=== PATIENT | female | born 1960 | race Caucasian/White ===

== ENCOUNTER 2016-08-13 20:04 | Emergency (ER) | payer OTHER ==
--- NOTE | 2016-08-14 00:24 | DIAGNOSTIC IMAGING REPORT ---
PROCEDURE: XR CHEST 2 VIEW INDICATION: SHORTNESS OF BREATH, initial encounter TECHNIQUE: PA and lateral view. COMPARISON: None. FINDINGS: Lungs are clear. Borderline cardiomegaly. Mediastinum and pulmonary vessels are normal. Bony thorax is unremarkable. IMPRESSION: 1. Borderline cardiomegaly.
--- NOTE | 2016-08-14 00:46 | ED ORDER SUMMARY ---
..... Patient: SASKIA COURTNEY OrderSheet [facility] VisitID: [id number] [place] [address] 55y, F Registration Date/Time: 08/13/2016 ORDER SHEET Weight: 72.5 kg (stated) Allergies: Codeine, Iodine GENERAL ORDERS: Chest 2V Urgent (21:34 08/13/2016 Linda TUTTLE) (Ack 21:37 ALawrence ER Tech1) (22:29 MCampbell) Vascular Sonographer (Continuous) (21:35 08/13/2016 Linda TUTTLE) (21:36 Wero R.N.) Cardiac Panel Stat (21:35 08/13/2016 Linda TUTTLE) (Ack 21:37 ALawrence ER Tech1) (21:55 ARIELLEullaminata R.N.) EKG - ER Stat (21:35 08/13/2016 Linda TUTTLE) (Ack 21:37 ALawrence ER Tech1) (22:04 ALawrence ER Tech1) Pulse oximeter (21:35 08/13/2016 Linda TUTTLE) (21:36 Wero R.N.) BNP Urgent (22:47 08/13/2016 Linda TUTTLE) (22:53 ALawrence ER Tech1) MEDICATION ORDERS: Albuterol Neb Tx 2.5 mg (NOW, HHN) (22:51 08/13/2016 Linda TUTTLE) (23:31 Wero R.N.) Hydrocodone-APAP PO 10/650 mg (NOW) (23:46 08/13/2016 Linda TUTTLE) (0:12 Wero R.N.) IV FLUIDS: IV NS : initial bolus 500 mL (1000 mL/hr), then 250 mL/hr for 2h (NOW); Routine (21:35 08/13/2016 Linda TUTTLE) (21:56 Wero R.N.) Rocephin IV 2 gm/50mL (NOW) (23:46 08/13/2016 Linda TUTTLE) (0:12 Wero R.N.) ORDER SHEET NOTES: [Electronically signed by Timoteo Ivan R.N. (01:08/14/2016)] [Electronically signed by Bud Munoz MD (20:57 08/14/2016)] [Electronically locked/signed by Timoteo Ivan R.N. (:08/14/2016)]
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
--- NOTE | 2016-08-14 00:46 | ED ORDER SUMMARY ---
..... Patient: SASKIA COURTNEY OrderSheet [facility] VisitID: [id number] [place] [address] 55y, F Registration Date/Time: 08/13/2016 ORDER SHEET Weight: 72.5 kg (stated) Allergies: Codeine, Iodine GENERAL ORDERS: Chest 2V Urgent (21:34 08/13/2016 Linda TUTTLE) (Ack 21:37 ALawrence ER Tech1) (22:29 MCampbell) Horseradish Maker (Continuous) (21:35 08/13/2016 Linda TUTTLE) (21:36 Wero R.N.) Cardiac Panel Stat (21:35 08/13/2016 Linda TUTTLE) (Ack 21:37 ALawrence ER Tech1) (21:55 ARIELLEullaminata R.N.) EKG - ER Stat (21:35 08/13/2016 Linda TUTTLE) (Ack 21:37 ALawrence ER Tech1) (22:04 ALawrence ER Tech1) Pulse oximeter (21:35 08/13/2016 Linda TUTTLE) (21:36 Wero R.N.) BNP Urgent (22:47 08/13/2016 Linda TUTTLE) (22:53 ALawrence ER Tech1) MEDICATION ORDERS: Albuterol Neb Tx 2.5 mg (NOW, HHN) (22:51 08/13/2016 Linda TUTTLE) (23:31 Wero R.N.) Hydrocodone-APAP PO 10/650 mg (NOW) (23:46 08/13/2016 Linda TUTTLE) (0:12 Wero R.N.) IV FLUIDS: IV NS : initial bolus 500 mL (1000 mL/hr), then 250 mL/hr for 2h (NOW); Routine (21:35 08/13/2016 Linda TUTTLE) (21:56 Wero R.N.) Rocephin IV 2 gm/50mL (NOW) (23:46 08/13/2016 Linda TUTTLE) (0:12 Wero R.N.) ORDER SHEET NOTES: [Electronically signed by Timoteo Ivan R.N. (01:08/14/2016)] [Electronically signed by Bud Munoz MD (20:57 08/14/2016)] [Electronically locked/signed by Timoteo Ivan R.N. (:08/14/2016)]
--- NOTE | 2016-08-14 00:46 | ED CLINICAL REPORT ---
Clinical Report - Physicians/Mid Levels [facility] [address] [place] [address] 08/13/2016 20:05 Patient: SASKIA COURTNEY Time Seen: 20:16. Arrived- By private vehicle. Historian- patient. CPT: ER phys charges level 4 plus (#[id number]). EKG interpretation (#[id number]). HISTORY OF PRESENT ILLNESS Chief Complaint: DYSPNEA and HISTORY OF CHRONIC OBSTRUCTIVE PULMONARY DISEASE. 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 The dyspnea is described as moderate and is worsened by walking and exertion and is improved by rest. The patient has had a cough. She has had moderate amounts of green sputum. There has been a change from baseline. She has had moderate chest soreness (left side sharp pain induced by cough. Worse with movement.). No dizziness or palpitations. Similar symptoms previously: Recent medical care: Not recently seen/assessed. REVIEW OF SYSTEMS No eye irritation, sore throat, nasal discharge, sinus drainage or nausea. No vomiting, abdominal pain, diarrhea, fainting episodes or difficulty with urination. No excessive urination, skin rash or enlarged lymph nodes. All systems otherwise negative, except as recorded above. PAST HISTORY Abdominal Pain. Diarrhea. Vomiting. Hypertension. Fall. Back Pain. Tetanus Status. Immunizations. LNMP - Last Normal Menstrual Period. Ectopic . Chronic right arm and wrist pain . Rotator Cuff Injury. Diabetes Mellitus. COPD - Chronic Obstructive Pulmonary Disease. Has home 02. Chronic Back Pain. . ADDITIONAL SURGERIES: . Right wrist surgery. Medications: Aspirin Oral. Lipitor Oral. ALPRAZolam Oral 0.5 mg, as needed. Citalopram Hydrobromide Oral (Tablet 20 mg) 1 tablet, daily . Diovan Oral 80 mg, daily. Invokana Oral (new DM oral med). Lantus Subcutaneous 30 units , at bedtime. Mirapex Oral 0.25 mg, daily. Morphine Sulfate Oral (10 or 15mg, doesn't recall. ). NexIUM Oral (pt unsure of dose ). Novalog ( Insulin) (sliding scale ). Vicodin Oral 10 mg, PRN (BAck PAin). Allergies: Codeine. Iodine. (states had an allergic reation about 20 years, rash, hives. ). SOCIAL HISTORY Never smoker. No alcohol use or drug use. ADDITIONAL NOTES The nursing notes have been reviewed. PHYSICAL EXAM Vital Signs: 08/13/2016 20:11 BP: 131/82. HR: 79. RR: 18. O2 saturation: 98%. Temp: 98 F. Appearance: Alert. Appears to be in pain. Patient in mild distress. Eyes: Eyes normal inspection. ENT: Ears normal. Nose normal. Dry mucous membranes present. Pharynx normal. Neck: Normal inspection. No jugular venous distention. Neck supple. CVS: Normal heart rate and rhythm. Heart sounds normal. Pulses normal. Respiratory: No respiratory distress. Decreased air movement. Expiratory moderate wheezes in the right lung base posteriorly and mid-lung posteriorly. Moderate rales in the right lung base posteriorly. Abdomen: Soft and nontender. Back: Normal inspection. Skin: Skin warm. Normal skin color. No rash. Extremities: Extremities exhibit normal ROM. No calf tenderness. No lower extremity edema. Neuro: Oriented X 3. No motor deficit. No sensory deficit. Reflexes normal. LABS, X-RAYS, AND EKG EKG: No acute ischemia. Normal sinus rhythm. Normal P waves. Normal QRS complex. Normal ST and T waves. Prior EKG unavailable. The study has been interpreted contemporaneously. The study has been independently viewed by me. Artifact present. Chest X-ray: Normal Chest X-Ray. Laboratory Tests: CBC w Diff: (BETY: 08/13/2016 21:52) ( MsgRcvd 08/13/2016 22:00) Final results Test Result Flag Units (Reference) WHITE BLOOD COUNT 7.2 K/uL (4.5-11.5) RED BLOOD COUNT 4.80 M/uL (4.00-5.20) HEMOGLOBIN 13.6 gm/dL (12.0-16.0) HEMATOCRIT 41.4 % (36.0-46.0) MEAN CELL VOLUME 86 fL (80-100) MEAN CORPUSCULAR HGB 28 pg (26-34) MEAN CORPUSCULAR HGB CONC 33 g/dL (31-37) RED CELL DISTRIBUTION WIDTH 14.0 % (11.6-14.8) PLATELET COUNT 232 K/uL (150-400) NEUTROPHIL % 53.1 % (50-75) LYMPH % 36.5 % (25-40) MONO % 6.5 % (3-14) EOSINOPHIL % 3.2 % (0-4) BASOPHIL % 0.7 % (0-2) CHEM 13 PANEL: (BETY: 08/13/2016 21:52) ( MsgRcvd 08/13/2016 22:19) Final results Test Result Flag Units (Reference) GLUCOSE 229 H mg/dL (70-110) BUN 8 mg/dL (7-18) CREATININE 0.8 mg/dL (0.6-1.3) Estimated GFR >60 mL/min Estimated GFR- >60 mL/min Note: Persistent reduction over 3 months in eGFR<60 mL/min/1.73 m2 defines CKD. Patients with eGFR values>=60 mL/min/1.73 m2 may also have CKD if evidence ofpersistent proteinuria. Additional information may be foundat www.[email or web address].org. SODIUM 139 mmol/L (136-145) POTASSIUM 4.3 mmol/L (3.5-5.1) CHLORIDE 101 mmol/L (98-107) CARBON DIOXIDE 30 mmol/L (21-32) CALCIUM 9.0 mg/dL (8.5-10.1) TOTAL PROTEIN 8.0 g/dL (6.4-8.2) ALBUMIN 3.8 g/dL (3.3-5.0) BILIRUBIN, TOTAL 0.2 mg/dL (0.0-1.0) ALKALINE PHOSPHATASE 73 U/L (46-116) AST (SGOT) 16 U/L (15-37) ALT (SGPT) 28 U/L (12-78) CPK 95 U/L (24-260) MAGNESIUM 1.8 mg/dL (1.8-2.4) TROPONIN I <0.05 L ng/mL (0.00-1.5) TROPONIN REFERENCE RANGE:<0.1 NEGATIVE0.1-1.5 INDETERMINANT>1.5 POSITIVE . PROGRESS AND PROCEDURES Course of Care: IV NS Rocephin 2g IV Vicodin 2 po Albuterol HHN: Wheezing resolved. Patient/family counseled. Disposition: Discharged. Condition: stable and improved. CLINICAL IMPRESSION Acute exacerbation of COPD. INSTRUCTIONS No strenuous activity. Rest. Warnings: Further evaluation is necessary. GENERAL WARNINGS: Return or contact your physician immediately if your condition worsens or changes unexpectedly, if not improving as expected, or if other problems arise. Your Current Medications: CONTINUE TAKING THE FOLLOWING MEDICATIONS: ALPRAZolam Oral : 0.5 mg, prn. Aspirin Oral. Citalopram Hydrobromide Oral : Tablet 20 mg, 1 tablet daily. Diovan Oral : 80 mg daily. Invokana Oral : new DM oral med. Lantus Subcutaneous : 30 units at bedtime. Lipitor Oral. Mirapex Oral : 0.25 mg daily. Morphine Sulfate Oral : 10 or 15mg, doesn't recall. NexIUM Oral : pt unsure of dose. Novalog ( Insulin) * : sliding scale. Vicodin Oral : 10 mg PRN, BAck PAin. Prescription Medications: Ceftin 500 mg: take 1 tab orally every 12 hours for 10 days. No refills. Substitution is permissible. Pulmicort Flexhaler 180 mcg: inhale 2 puffs every 12 hours. Rinse mouth after inhalation. Dispense one (1) unit. No refills. Substitution is permissible. Follow-up: Follow up with your doctor Wednesday in four days. Call for an appointment. Understanding of the discharge instructions verbalized by patient and family. (Electronically signed by Bud Munoz MD 08/14/2016 20:57)
--- NOTE | 2016-08-14 20:58 | ED DISCHARGE INSTRUCTIONS ---
Patient: SASKIA COURTNEY General Instructions [facility] VisitID: [id number] [place] [address] 55y, F Registration Date/Time: 08/13/2016 Acute exacerbation of COPD. INSTRUCTIONS No strenuous activity. Rest. Warnings: Further evaluation is necessary. GENERAL WARNINGS: Return or contact your physician immediately if your condition worsens or changes unexpectedly, if not improving as expected, or if other problems arise. Your Current Medications: CONTINUE TAKING THE FOLLOWING MEDICATIONS: ALPRAZolam Oral : 0.5 mg, prn. Aspirin Oral. Citalopram Hydrobromide Oral : Tablet 20 mg, 1 tablet daily. Diovan Oral : 80 mg daily. Invokana Oral : new DM oral med. Lantus Subcutaneous : 30 units at bedtime. Lipitor Oral. Mirapex Oral : 0.25 mg daily. Morphine Sulfate Oral : 10 or 15mg, doesn't recall. NexIUM Oral : pt unsure of dose. Novalog ( Insulin) * : sliding scale. Vicodin Oral : 10 mg PRN, BAck PAin. Prescription Medications: Ceftin 500 mg: take 1 tab orally every 12 hours for 10 days. No refills. Substitution is permissible. Pulmicort Flexhaler 180 mcg: inhale 2 puffs every 12 hours. Rinse mouth after inhalation. Dispense one (1) unit. No refills. Substitution is permissible. Follow-up: Follow up with your doctor Wednesday in four days. Call for an appointment. Understanding of the discharge instructions verbalized by patient and family. ADDITIONAL INFORMATION COPD Flare Both emphysema and chronic bronchitis are forms of chronic obstructive pulmonary disease (COPD). It is most often caused by many years of smoking tobacco. Many things can make your lung disease suddenly get worse. These causes include the common cold, pneumonia, acute bronchitis, missing doses of your regular breathing medicines, or being around smoke, dust, or other air pollutants. A COPD flare may last 7 to 14 days. Your doctor may prescribe medicineto relax your airways and prevent wheezing. Your doctor may also prescribe antibiotics if he or she thinks you havea bacterial infection. Prednisone can helpease inflammation in a severe attack. Home care Here are things you can do at home: Drink lots of water or other fluids (at least 10 glasses a day) during an attack. This will loosen lung secretions and make it easier to breathe. If you have heart or kidney disease, check with your doctor before you drink extra amounts of fluids. Take prescribed medicine exactly at the times advised. If you have a hand-held inhaler or aerosol breathing medicine, don't use it more than once every 4 hours, unless your doctor tells you to. If you were givenan antibiotic or prednisone, take all of the medicine even if you are feeling better after a few days. Don't smoke. Avoid being aroundthe smoke of others. If you were given an inhaler, use it exactly as directed. If you need to use it more often than prescribed, your condition may be getting worse. Call your doctor. Follow-up care Follow up with your health care provider.If you are 65 or older or have chronic asthma or COPD, you should get a single dose of the pneumococcal vaccine and aflu shot each year. You may need a second dose of the pneumococcal vaccine if you had the first dose at a younger age. Your health care provider will let you know if you need a second dose. For all other people, the usual dose for the pneumococcal vaccine is 1 or 2 shots. Yourprovider can discuss this with you. When to seek medical care Get prompt medical attention ifany of these occur: Increased wheezing or shortness of breath Need to use your inhalers more often than usual without relief Fever of 100.4F(38C) or higher, or as directed by your health care provider Coughing up lots of dark-colored or bloody sputum (mucus) Chest pain with each breath You do not start to improve within 24 hours You have been given the following additional information: COPD Flare No strenuous activity. Rest. (Electronically signed by Bud Munoz MD 08/14/2016 20:57)
--- NOTE | 2016-08-14 20:58 | ED MAR SUMMARY ---
..... Medication Administration Record [facility] [address] [address] Patient: SASKIA COURTNEY Visit ID: [id number] 55y, F Weight: 72.5 kg Height/Length: 59 in BMI: 32.3 ALLERGIES: Codeine, Iodine Start 21:55 08/13/2016 Timoteo Ivan R.N. Medication Administered: IV NS (SALINE), Dose: IV Fluids, Bolus: 500 mL wide open, Dispensed: 500 mL bag, Site: #1 left AC. Medication Ordered: IV NS : initial bolus 500 mL (1000 mL/hr), then 250 mL/hr for 2h (NOW); Routine. Given 23:06 08/13/2016 Timoteo Ivan R.N. Medication Administered: ALBUTEROL [NEB TX], Dose: 1 unit dose Neb TX. Medication Ordered: Albuterol Neb Tx 2.5 mg (NOW, [facility]). Start 00:12 08/14/2016 Timoteo Ivan R.N. Medication Administered: ROCEPHIN [IVPB] (CEFTRIAXONE SODIUM), Dose: 2 gm IVPB over 30 minute(s), Rate: 100 mL/hr, Dispensed: 50 mL bag, Site: #1 left AC. Medication Ordered: Rocephin IV 2 gm/50mL (NOW). Given 00:12 08/14/2016 Timoteo Ivan R.N. Medication Administered: HYDROCODONE-APAP [PO] (HYDROCODONE-ACETAMINOPHEN), Dose: 2 tab 5/325 mg Tablets PO. Medication Ordered: Hydrocodone-APAP PO 10/650 mg (NOW).
--- NOTE | 2016-08-14 20:58 | ED MAR SUMMARY ---
..... Medication Administration Record [facility] [address] [place] [address] Patient: SASKIA COURTNEY Visit ID: [id number] 55y, F Weight: 72.5 kg Height/Length: 59 in BMI: 32.3 ALLERGIES: Codeine, Iodine Start 21:55 08/13/2016 Timoteo Ivan R.N. Medication Administered: IV NS (SALINE), Dose: IV Fluids, Bolus: 500 mL wide open, Dispensed: 500 mL bag, Site: #1 left AC. Medication Ordered: IV NS : initial bolus 500 mL (1000 mL/hr), then 250 mL/hr for 2h (NOW); Routine. Given 23:06 08/13/2016 Timoteo Ivan R.N. Medication Administered: ALBUTEROL [NEB TX], Dose: 1 unit dose Neb TX. Medication Ordered: Albuterol Neb Tx 2.5 mg (NOW, [facility]). Start 00:12 08/14/2016 Timoteo Ivan R.N. Medication Administered: ROCEPHIN [IVPB] (CEFTRIAXONE SODIUM), Dose: 2 gm IVPB over 30 minute(s), Rate: 100 mL/hr, Dispensed: 50 mL bag, Site: #1 left AC. Medication Ordered: Rocephin IV 2 gm/50mL (NOW). Given 00:12 08/14/2016 Timoteo Ivan R.N. Medication Administered: HYDROCODONE-APAP [PO] (HYDROCODONE-ACETAMINOPHEN), Dose: 2 tab 5/325 mg Tablets PO. Medication Ordered: Hydrocodone-APAP PO 10/650 mg (NOW).
--- NOTE | 2016-08-14 20:58 | ED MED RECONCILIATION SUMMARY ---
Patient: SASKIA COURTNEY Medication Reconciliation Report [facility] VisitID: [id number] [address] [place] [address] 55y, F Registration Date/Time: 08/13/2016 Weight: 72.5 kg Height/Length: 59 in. BMI: 32.3 ALLERGIES: Codeine, Iodine The patient's Home Medications are listed below: CONTINUE TAKING THE FOLLOWING MEDICATIONS: ALPRAZolam Oral 0.5 mg Aspirin Oral Citalopram Hydrobromide Oral (20 mg) 1 tablet, daily Diovan Oral 80 mg, daily Invokana Oral, new DM oral med Lantus Subcutaneous 30 units , at bedtime Lipitor Oral Mirapex Oral 0.25 mg, daily Morphine Sulfate Oral, 10 or 15mg, doesn't recall. NexIUM Oral, pt unsure of dose Novalog ( Insulin) , sliding scale Vicodin Oral 10 mg, PRN, BAck PAin The source(s) of the original Home Medication information: Not obtained. The following Medications were given to the patient in the Emergency Department: IV NS IV Fluids bolus 500 mL wide open, administered: 08/13/2016 9:55:00 PM Albuterol [Neb Tx] Neb TX 1 unit dose, administered: 08/13/2016 11:06:00 PM Rocephin [IVPB] IVPB bolus 0, then 2 gm 100 mL/hr, administered: 08/14/2016 12:12:00 AM Hydrocodone-APAP [PO] PO 2 tab, administered: 08/14/2016 12:12:00 AM The following Medications were prescribed to the patient: Ceftin 500 mg: take 1 tab orally every 12 hours for 10 days. No refills. Substitution is permissible. -- Bud Munoz MD Pulmicort Flexhaler 180 mcg: inhale 2 puffs every 12 hours. Rinse mouth after inhalation. Dispense one (1) unit. No refills. Substitution is permissible. -- Bud Munoz MD
--- NOTE | 2016-08-14 20:58 | ED MED RECONCILIATION SUMMARY ---
Patient: SASKIA COURTNEY Medication Reconciliation Report [facility] VisitID: [id number] [address] [place] [address] 55y, F Registration Date/Time: 08/13/2016 Weight: 72.5 kg Height/Length: 59 in. BMI: 32.3 ALLERGIES: Codeine, Iodine The patient's Home Medications are listed below: CONTINUE TAKING THE FOLLOWING MEDICATIONS: ALPRAZolam Oral 0.5 mg Aspirin Oral Citalopram Hydrobromide Oral (20 mg) 1 tablet, daily Diovan Oral 80 mg, daily Invokana Oral, new DM oral med Lantus Subcutaneous 30 units , at bedtime Lipitor Oral Mirapex Oral 0.25 mg, daily Morphine Sulfate Oral, 10 or 15mg, doesn't recall. NexIUM Oral, pt unsure of dose Novalog ( Insulin) , sliding scale Vicodin Oral 10 mg, PRN, BAck PAin The source(s) of the original Home Medication information: Not obtained. The following Medications were given to the patient in the Emergency Department: IV NS IV Fluids bolus 500 mL wide open, administered: 08/13/2016 9:55:00 PM Albuterol [Neb Tx] Neb TX 1 unit dose, administered: 08/13/2016 11:06:00 PM Rocephin [IVPB] IVPB bolus 0, then 2 gm 100 mL/hr, administered: 08/14/2016 12:12:00 AM Hydrocodone-APAP [PO] PO 2 tab, administered: 08/14/2016 12:12:00 AM The following Medications were prescribed to the patient: Ceftin 500 mg: take 1 tab orally every 12 hours for 10 days. No refills. Substitution is permissible. -- Bud Munoz MD Pulmicort Flexhaler 180 mcg: inhale 2 puffs every 12 hours. Rinse mouth after inhalation. Dispense one (1) unit. No refills. Substitution is permissible. -- Bud Munoz MD
== END 2016-08-14 01:00 | disposition home or self-care (01) ==
LOC: ED SRH 20:04
DX: J44.1 Chronic obstructive pulmonary disease with (acute) exacerbation (principal); I10 Essential (primary) hypertension; E11.9 Type 2 diabetes mellitus without complications; Z79.84 Long term (current) use of oral hypoglycemic drugs; Z79.4 Long term (current) use of insulin; Z79.899 Other long term (current) drug therapy; Z88.5 Allergy status to narcotic agent; Z91.048 Other nonmedicinal substance allergy status
CPT/HCPCS: 90100; 90616; 91320; 92610; 92720; 95059

== ENCOUNTER 2016-09-08 10:30 | Outpatient (CLI) | payer OTHER ==
--- NOTE | 2016-09-08 11:43 | DIAGNOSTIC IMAGING REPORT ---
PROCEDURE: XR UPPER GI WITH AIR INDICATION: RELFUX DISEASE TECHNIQUE: Double contrast study. Fluoroscopy time, 4.6 minutes; 3098.29 mGy. 71 fluoroscopic images (including cinefluoroscopy). COMPARISON: None. FINDINGS: Patulous gastroesophageal junction with minimal to mild gastroesophageal reflux. There are moderate tertiary contractions of the mid and distal esophagus. Esophagus is otherwise normal. Stomach and duodenum are normal. IMPRESSION: 1. Patulous gastroesophageal junction with minimal to mild reflux. 2. Moderate tertiary contractions of the esophagus (esophageal spasm). 3. Otherwise negative upper GI.
== END 2016-09-08 23:00 ==
LOC: XR SRH 10:30
DX: K22.4 Dyskinesia of esophagus (principal)